=== PATIENT | male | born 1945 | race Caucasian/White ===

== ENCOUNTER 2023-11-25 17:33 | Emergency (ER) | payer MEDICARE, BC ==
[~2023-11-25] VITALS: Ht 175.3 cm; Wt 80.9 kg
[2023-11-25 18:10] VITALS: BP 158/83; PULSE 87; TEMP 98.5
[2023-11-25] MEDS ORDERED: Lidocaine 2% (20 MG/ML) 20 ML UROJET MM ONE (19:25)
== END 2023-11-25 20:00 | disposition home or self-care (01) ==
LOC: COL.ER 17:33
DX: Z46.6 Encounter for fitting and adjustment of urinary device (principal)
CPT/HCPCS: C1769

== ENCOUNTER 2024-01-06 10:11 | Day surgery (SDC) | payer MEDICARE, BC ==
[~2024-01-06] VITALS: Ht 175.3 cm; Wt 80.9 kg
[~2024-01-06 10:11] MED LIST: LR 1,000 ML IV SCH
[2024-01-06] MEDS ORDERED: fentaNYL 50 MCG/ML 2 ML VIAL ONE (11:12)
[2024-01-06] MEDS ORDERED: Lidocaine PF 2% (20 MG/ML) 5 ML VIAL ONE (11:12)
[2024-01-06 11:34] VITALS: BP 162/80; PULSE 79; TEMP 97.7
[2024-01-06] MEDS ORDERED: HCTZ 25MG TAB25 MG PO (11:42)
[2024-01-06] MEDS ORDERED: PRILOSEC 20MG20 MG PO (11:43)
[2024-01-06] MEDS ORDERED: dexAMETHasone 10 MG/ML VIAL ONE (11:43)
[2024-01-06] MEDS ORDERED: Ondansetron 4 MG/2 ML VIAL ONE (11:43)
[2024-01-06] MEDS ORDERED: GLUCOPHAGE500 MG/TAB PO (11:44)
[2024-01-06] MEDS ORDERED: NORVASC 5MG5 MG/TAB PO (11:44)
[2024-01-06] MEDS ORDERED: PRINIVIL40 MG PO (11:45)
[2024-01-06] MEDS ORDERED: NORMODYNE100 MG PO (11:45)
[2024-01-06] MEDS ORDERED: OSCAL 500 TAB500 MG PO (11:46)
[2024-01-06] MEDS ORDERED: NATURAL POTASS595 MG (11:47)
[2024-01-06] MEDS ORDERED: OCUVITE1 TA1 PO (11:47)
[2024-01-06] MEDS ORDERED: ONE-A-DAY MEN'1 EAC5 PO (11:49)
[2024-01-06] MEDS ORDERED: ASPIRIN 81M81 MG/TA2 PO (11:49)
[2024-01-06] MEDS ORDERED: Lidocaine 2% (20 MG/ML) 20 ML UROJET UR ONE (11:50)
[2024-01-06] MEDS ORDERED: [UNRECOGNIZED DRUG - OTHER] (11:52)
[2024-01-06] MEDS ORDERED: [UNRECOGNIZED DRUG - OTHER] (11:53)
[2024-01-06] MEDS ORDERED: Labetalol 100 MG/20 ML Multi-Dose VIAL ONE (11:58)
[2024-01-06] MEDS ORDERED: Ondansetron 4 MG/2 ML VIAL IV PRN (12:00)
[2024-01-06] MEDS ORDERED: HYDROmorphone 2 MG/1 ML VIAL IV PRN (12:00)
[2024-01-06] MEDS ORDERED: fentaNYL 50 MCG/ML 2 ML VIAL IV PRN (12:00)
[2024-01-06] MEDS ORDERED: Meperidine 50 MG/ML 1 ML VIAL IV PRN (12:00)
[2024-01-06] MEDS ORDERED: droPERidol 2.5 MG/ML 2 ML VIAL IV PRN (12:00)
[2024-01-06] MEDS ORDERED: LR 1,000 ML IV ONE (12:02)
[2024-01-06] MEDS ORDERED: NORCO 325 MG-51 TAB PO (12:09)
[2024-01-06] MEDS ORDERED: hydrALAZINE 20 MG/ML 1 ML VIAL ONE (12:20)
[2024-01-06] MEDS ORDERED: Hyoscyamine 0.125 MG Sublingual TAB SL ONE (12:54)
[2024-01-06 13:20] VITALS: BP 115/48; PULSE 65; TEMP 97.3
[2024-01-06 13:45] VITALS: BP 152/67; PULSE 74
[2024-01-06 14:00] VITALS: BP 132/63; PULSE 82
[2024-01-06 14:15] VITALS: BP 137/59; PULSE 80
[2024-01-06] MEDS ORDERED: HYDROcodone/Acetaminophen 7.5-325 MG TAB PO ONE (14:15)
--- NOTE | 2024-01-06 19:03 | NUR ---
1310 Received report from KEYSHA Bell. 1320 Patient returned to bay 2 from PACU, alert and oriented, breathing even and unlabored. Patient reporting pain in his penis a 8/10, worse with movement. Patient repositioned with vocaliztion of some relief. 1335 Patient given ice cream and water for a PO challenge. Patient tolerated well and was given pudding and a muffin at his request. Patient treated with prn [place] for continued pain in penis, up to 10/10 with movement. 1457 Reviewed printed physician discharge instructions and patient educational materials with patient and his . Questions invited and answered. Patient reporting pain symptoms improving with pain medication. Patient now able to get dressed. Abad bag changed to leg bag at patient's request. 1545 Patient to lobby via wheel chair for a ride home with his frined in POV.
== END 2024-01-06 15:40 | disposition home or self-care (01) ==
LOC: SDCO 10:11
DX: R33.9 Retention of urine, unspecified (principal)
CPT/HCPCS: C1769; J0360; J0665; J0690; J1100; J1920; J2405; J2704; J3010; J7120